=== PATIENT | female | born 1930 | race Caucasian/White ===

== ENCOUNTER 2018-10-09 08:08 | Day surgery (SDC) | payer OTHER ==
[~2018-10-09 08:08] MED LIST: Ativan0.5 MG PO; CALTRATE 600+D1 EAC1 PO; CENTRUM SILVER1 EAC2 PO; COREG PO; Doxazosin Mesyla8 MG PO; Fosinopril Sodi40 MG PO; KRILL OIL500 MG PO; LEVSOD50 PO; Norco 5-325 Ta1 EACH PO; OSTEO BI-FLEX1 EAC2 PO; Potassium Chlo10 ME1 PO; Simvastatin40 MG PO
[2018-10-09] MEDS ORDERED: FURO20 PO (09:33)
[2018-10-09] MEDS ORDERED: ASPI325 PO (09:34)
[2018-10-09] MEDS ORDERED: (None)15 G1 EXT (09:34)
[2018-10-09] MEDS ORDERED: CLOP75 PO (10:23)
== END 2018-10-09 10:45 | disposition home or self-care (01) ==
LOC: MHTC 08:08
DX: I63.9 Cerebral infarction, unspecified (principal); I10 Essential (primary) hypertension; E78.5 Hyperlipidemia, unspecified; E03.9 Hypothyroidism, unspecified; Z79.899 Other long term (current) drug therapy
CPT/HCPCS: 93312; 93325; J7030

== ENCOUNTER 2019-08-16 21:18 | Inpatient (IN) | payer OTHER ==
[~2019-08-16] VITALS: Ht 144.8 cm; Wt 65.9 kg
[~2019-08-16 21:18] MED LIST changes: +(None)15 G1 EXT; +ASPI325 PO; +CLOP75 PO; +FURO20 PO
[2019-08-16 21:59] LABS: BASOPHILS ABSOLUTE AUTO 0.03 K/mm3 (0.00-0.23); BASOPHILS PERCENT AUTO 0 % (0-2); EOSINOPHILS ABSOLUTE AUTO 0.08 K/mm3 (0.00-0.68); EOSINOPHILS PERCENT AUTO 1 % (0-6); Hematocrit 31.2 % (33.0-51.0); Hemoglobin 10.1 g/dL (11.5-16.0); IMMATURE GRAN ABSOLUTE AUTO 0.14 K/mm3 (0.00-0.10); IMMATURE GRAN PERCENT AUTO 1 % (0-1); LYMPHOCYTES ABSOLUTE AUTO 0.57 K/mm3 (0.84-5.20); LYMPHOCYTES PERCENT AUTO 4 % (21-46); MONOCYTES ABSOLUTE AUTO 1.18 K/mm3 (0.16-1.47); MONOCYTES PERCENT AUTO 8 % (4-13); Mean Corpuscular HGB 32.1 pg (26.0-34.0); Mean Corpuscular HGB Conc 32.4 g/dL (31.5-36.5); Mean Corpuscular Volume 99 fL (80-100); Mean Platelet Volume 10.6 fL (9.1-12.4); NEUTROPHILS ABSOLUTE AUTO 12.56 K/mm3 (1.96-9.15); NEUTROPHILS PERCENT AUTO 86 % (41-73); Platelet Count 188 K/mm3 (150-400); RDW Coefficient Variation 13.1 % (11.7-14.2); RDW Standard Deviation 47.9 fL (35.1-46.3); Red Blood Cell Count 3.15 M/mm3 (3.80-5.20); White Blood Cell Count 14.56 K/mm3 (4.00-11.30)
[2019-08-16 22:24] LABS: Albumin, Blood 2.9 g/dL (3.4-5.0); Albumin/Globulin Ratio 0.7 (0.8-1.8); Bilirubin, Total 0.4 mg/dL (0.1-1.0); Bun/Creatinine Ratio 23.4 (12.0-20.0); Calcium, Blood 8.7 mg/dL (8.5-10.1); Creatinine, Blood 2.9 mg/dL (0.40-1.00); Globulin, Blood 4.1 g/dL (2.2-4.0); Potassium, Blood 4.9 mmol/L (3.5-5.5)
[2019-08-16 23:15] LABS: Source, Urine Catheter
[2019-08-16 23:20] LABS: Appearance, Urine Cloudy (Clear); Bilirubin, Urine Neg (Neg); Blood, Urine 3+ (Neg); Color, Urine Yellow (P-Yellow); Glucose Qualitative, Urine Neg (Neg); Ketones, Urine Neg (Neg); Leukocyte Esterase, Urine 3+ (Neg); Nitrite, Urine Neg (Neg); Protein, Urine 3+ (Neg); Specific Gravity, Urine 1.015 (1.003-1.022); Urobilinogen, Urine NORM (Normal)
[2019-08-16 23:32] LABS: U Amphetamine Screen Not Detected; U Barbituate Screen Not Detected; U Benzodiazapine Screen Not Detected; U Buprenorphine Screen Not Detected; U Cannabinoids Screen Not Detected; U Cocaine Screen Not Detected; U Methadone Screen Not Detected; U Methamphetamine Screen Not Detected; U Opiates Screen Not Detected; U Oxycodone Screen Not Detected; U Phencyclidine Screen Not Detected; U Propoxyphene Screen Not Detected
[2019-08-16 23:35] LABS: Bacteria Many /hpf; Red Blood Cells, Urine 0-2 /hpf (0-2); Squamous Epithelial Cells Not Seen /hpf (Few); White Blood Cells, Urine TNTC /hpf (0-5)
--- NOTE | 2019-08-17 03:49 | NUR ---
ASSUMED CARE APPROXIMATELY 0330; PT MED/NO TELE STATUS; PT ALERT & ORIENTED TO SELF; DAUGHTER ESCORTED PT TO ROOM, STATED SHE WOULD BE BACK IN THE AM; PT ON RA W/ O2 SATS >93; LUNG SOUNDS DIM IN BASES; PT PROVIDED MINIMAL ANSWERS FOR ADMIT AND IS POOR HISTORIAN; PT HAS HOME SLIPPERS ON; ATTENDS IN PLACE DUE TO INCONTINENCE; EDUCATED ON USING CALL LIGHT & ORIENTED TO UNIT; PT DENIES NEEDS AT THIS TIME; CALL LIGHT IN REAC; BED IN LOWEST POSITION
--- NOTE | 2019-08-17 06:43 | NUR ---
SHIFT SUMMARY PT SLEPT FOR A COUPLE HOURS ONCE SITUATED; PT FORGETFUL; [place]; NEEDS TIME TO RESPOND; DENIES CHEST PAIN; DENIES SOB; PT ON RA W/ O2 SATS >93; PT INCONTINENT; ATTENDS IN PLACE; DENIES NEEDS; PT REORIENTED TO CALL LIGHT; CALL LIGHT IN PLACE; BED IN LOWEST POSITION; WILL CONTINUE TO MONITOR CLOSELY UNTIL HAND OFF TO DAY SHIFT RN.
--- NOTE | 2019-08-17 06:57 | NUR ---
UPDATE SYNTHROID NOT GIVEN; PHARMACY NOTIFIED OF DOSAGE; NEW SYNTHROID TAB WILL BE SENT
--- NOTE | 2019-08-17 07:26 | NUR ---
ASSUMED CARE: PT RESTING QUIETLY AT THIS TIME. NO ACUTE NEEDS OR DISTRESS NOTED AT THIS TIME.
[2019-08-17 09:05] LABS: Bun/Creatinine Ratio 24.3 (12.0-20.0); Calcium, Blood 8.4 mg/dL (8.5-10.1); Creatinine, Blood 3.01 mg/dL (0.40-1.00); Potassium, Blood 4.7 mmol/L (3.5-5.5)
--- NOTE | 2019-08-17 16:00 | NUR ---
PT TRANSFERRED TO MEDICAL FLOOR WITH NEW IV IN PLACE. REPORT GIVEN TO JEANNE PIEDRA. TADEO AWARE THAT PT WILL NEED ROCEPHIN STARTED UPON TRANSFER. PT'S DAUGHTER AWARE OF TRANSFER TO [facility]. PT TRANSFERRED VIA BED BY HOSPITAL STAFF.
--- NOTE | 2019-08-17 18:21 | NUR ---
SHIFT SUMMARY: PATIENT XFR FROM PCU-05 THIS SHIFT. PT ALERT; ORIENTED TO SELF ONLY; [place]; CALM AND COOPERATIVE WITH CARE. NO C/O PAIN OR NAUSEA SINCE ARRIVAL ON MEDICAL FLOOR. SMALL PO MEDS WHOLE IN WATER; LARGER MEDS CRUSHED IN APPLESAUCE. IV REHYDRATION & IV ABX CONTINUING. WCTM.
--- NOTE | 2019-08-18 03:53 | NUR ---
SHIFT SUMMARY NO ISSUES NOTED THIS SHIFT. PT HAS BEEN SLEEPING T/O SHIFT. PT HAS BEEN REPOSITIONED AND CHANGED NEEDED. PT DAUGHTERS STOPPED BY AND PROVIDED PT BLANKETS FROM HOME. PT CURRENTLY SLEEPING AND BREATHING EASY. CALL LIGHT IN REACH AND BED ALARM ON.
[2019-08-18 05:29] LABS: BASOPHILS ABSOLUTE AUTO 0.02 K/mm3 (0.00-0.23); BASOPHILS PERCENT AUTO 0 % (0-2); EOSINOPHILS ABSOLUTE AUTO 0.05 K/mm3 (0.00-0.68); EOSINOPHILS PERCENT AUTO 1 % (0-6); Hematocrit 30.2 % (33.0-51.0); Hemoglobin 9.4 g/dL (11.5-16.0); IMMATURE GRAN ABSOLUTE AUTO 0.03 K/mm3 (0.00-0.10); IMMATURE GRAN PERCENT AUTO 0 % (0-1); LYMPHOCYTES ABSOLUTE AUTO 0.41 K/mm3 (0.84-5.20); LYMPHOCYTES PERCENT AUTO 4 % (21-46); MONOCYTES ABSOLUTE AUTO 1.08 K/mm3 (0.16-1.47); MONOCYTES PERCENT AUTO 10 % (4-13); Mean Corpuscular HGB 30.5 pg (26.0-34.0); Mean Corpuscular HGB Conc 31.1 g/dL (31.5-36.5); Mean Corpuscular Volume 98 fL (80-100); Mean Platelet Volume 11.6 fL (9.1-12.4); NEUTROPHILS ABSOLUTE AUTO 8.95 K/mm3 (1.96-9.15); NEUTROPHILS PERCENT AUTO 85 % (41-73); Platelet Count 155 K/mm3 (150-400); RDW Coefficient Variation 13.2 % (11.7-14.2); RDW Standard Deviation 47.3 fL (35.1-46.3); Red Blood Cell Count 3.08 M/mm3 (3.80-5.20); White Blood Cell Count 10.54 K/mm3 (4.00-11.30)
[2019-08-18 05:59] LABS: Bun/Creatinine Ratio 26.4 (12.0-20.0); Calcium, Blood 8.5 mg/dL (8.5-10.1); Creatinine, Blood 2.92 mg/dL (0.40-1.00)
--- NOTE | 2019-08-18 10:26 | NUR ---
PATIENT WAS UP IN CHAIR FOR BREAKFAST AND REMAINED IN CHAIR UNTIL 1020
--- NOTE | 2019-08-18 18:09 | NUR ---
SHIFT SUMMARY PATIENT A/O X 2. MAKES NEEDS KNOWN. CALL LIGHT IN REACH. NO SOB, PAIN REPORTED. IV ABX INFUSED WITHOUT ASE OBSERVED. VSS. PATIENT UP IN CHAIR FOR MEAL AT BREAKFAST. REFUSED TO GET OUT OF BED FOR LUNCH AND DINNER. SKIN CDI AND PATIENT TURNED Q 2 HOURS.
[2019-08-19 05:15] LABS: BASOPHILS ABSOLUTE AUTO 0.04 K/mm3 (0.00-0.23); BASOPHILS PERCENT AUTO 0 % (0-2); EOSINOPHILS ABSOLUTE AUTO 0.55 K/mm3 (0.00-0.68); EOSINOPHILS PERCENT AUTO 6 % (0-6); Hematocrit 28.6 % (33.0-51.0); Hemoglobin 9.1 g/dL (11.5-16.0); IMMATURE GRAN ABSOLUTE AUTO 0.05 K/mm3 (0.00-0.10); IMMATURE GRAN PERCENT AUTO 1 % (0-1); LYMPHOCYTES ABSOLUTE AUTO 0.53 K/mm3 (0.84-5.20); LYMPHOCYTES PERCENT AUTO 6 % (21-46); MONOCYTES ABSOLUTE AUTO 1.19 K/mm3 (0.16-1.47); MONOCYTES PERCENT AUTO 13 % (4-13); Mean Corpuscular HGB 31.1 pg (26.0-34.0); Mean Corpuscular HGB Conc 31.8 g/dL (31.5-36.5); Mean Corpuscular Volume 98 fL (80-100); Mean Platelet Volume 11.5 fL (9.1-12.4); NEUTROPHILS ABSOLUTE AUTO 6.62 K/mm3 (1.96-9.15); NEUTROPHILS PERCENT AUTO 74 % (41-73); Platelet Count 154 K/mm3 (150-400); RDW Coefficient Variation 13.3 % (11.7-14.2); RDW Standard Deviation 47.8 fL (35.1-46.3); Red Blood Cell Count 2.93 M/mm3 (3.80-5.20); White Blood Cell Count 8.98 K/mm3 (4.00-11.30)
[2019-08-19 05:33] LABS: Bun/Creatinine Ratio 29.9 (12.0-20.0); Calcium, Blood 8.5 mg/dL (8.5-10.1); Creatinine, Blood 2.81 mg/dL (0.40-1.00); Potassium, Blood 4.8 mmol/L (3.5-5.5)
--- NOTE | 2019-08-19 05:35 | NUR ---
SHIFT SUMMARY PT IS AN 89 Y/O FEMALE, ADMITTED FOR UTI. SHE IS A&O X 1, CURRENTLY ON BEDREST, TURN Q2H AND INCONTINENT. VITAL SIGNS STABLE. PT DENIED ANY COMPLAINTS OF ACUTE PAIN, NAUSEA OR SOB AND SLEPT WELL DURING THE NIGHT. NO ACUTE CHANGES IN PT CONDITION NOTED DURING THE NIGHT. WILL CONTINUE TO MONITOR AND TREAT PER EMAR UNTIL HAND OFF TO DAY SHIFT RN.
--- NOTE | 2019-08-19 15:52 | NUR ---
SHIFT SUMMARY PT IS A/O TO HERSELF,FAMILY AND SITUATION AT TIMES. SHE HAS NO C/O PAIN. PT HAS BEEN CONT AND INC THROUGHOUT THE DAY. IV FLUIDS INFUSED ORDERED. PT HAS A GOOD APPETITE. FAMILY HAS BEEN AT THE BEDSIDE MOST OF THE DAY. SHE IS ABLE TO MAKE HER NEEDS KNOWN WHILE IN THE ROOM BUT DOESNT ALWAYS CALL FOR HELP. BED ALARM IS SET FOR SAFETY.
[2019-08-20 04:56] LABS: BASOPHILS ABSOLUTE AUTO 0.04 K/mm3 (0.00-0.23); BASOPHILS PERCENT AUTO 0 % (0-2); EOSINOPHILS ABSOLUTE AUTO 0.57 K/mm3 (0.00-0.68); EOSINOPHILS PERCENT AUTO 6 % (0-6); Hematocrit 28.8 % (33.0-51.0); Hemoglobin 9.2 g/dL (11.5-16.0); IMMATURE GRAN ABSOLUTE AUTO 0.05 K/mm3 (0.00-0.10); IMMATURE GRAN PERCENT AUTO 1 % (0-1); LYMPHOCYTES PERCENT AUTO 6 % (21-46); MONOCYTES ABSOLUTE AUTO 1.48 K/mm3 (0.16-1.47); MONOCYTES PERCENT AUTO 15 % (4-13); Mean Corpuscular HGB 31.2 pg (26.0-34.0); Mean Corpuscular HGB Conc 31.9 g/dL (31.5-36.5); Mean Corpuscular Volume 98 fL (80-100); Mean Platelet Volume 11.5 fL (9.1-12.4); NEUTROPHILS ABSOLUTE AUTO 7.33 K/mm3 (1.96-9.15); NEUTROPHILS PERCENT AUTO 73 % (41-73); Platelet Count 162 K/mm3 (150-400); RDW Coefficient Variation 13.2 % (11.7-14.2); RDW Standard Deviation 47.3 fL (35.1-46.3); Red Blood Cell Count 2.95 M/mm3 (3.80-5.20); White Blood Cell Count 10.07 K/mm3 (4.00-11.30)
[2019-08-20 05:14] LABS: Bun/Creatinine Ratio 31.8 (12.0-20.0); Calcium, Blood 7.9 mg/dL (8.5-10.1); Creatinine, Blood 2.33 mg/dL (0.40-1.00); Potassium, Blood 4.2 mmol/L (3.5-5.5)
--- NOTE | 2019-08-20 05:46 | NUR ---
SHIFT SUMMARY PT IS AN 89 Y/O FEMALE, ADMITTED FOR A UTI. SHE IS A&O X SELF AND FAMILY, INCONTINENT AND TURN Q2H. NO COMPLAINTS OF PAIN, NAUSEA OR SOB. VITAL SIGNS STABLE. PT RECEIVED NS @ 125/HR THROUGH THE NIGHT. NO ACUTE CHANGES IN PT CONDITION NOTED. WILL CONTINUE TO MONITOR AND TREAT PER EMAR UNTIL HAND OFF TO DAY SHIFT RN.
[2019-08-20] MEDS ORDERED: ACET325 PO (12:17)
[2019-08-20] MEDS ORDERED: ASPI325 PO (12:18)
[2019-08-20] MEDS ORDERED: Culturelle1 CAP PO (12:19)
[2019-08-20] MEDS ORDERED: DULCOLAX5 MG PO (12:19)
[2019-08-20] MEDS ORDERED: ONDA4 PO (12:20)
[2019-08-20] MEDS ORDERED: SENN187 PO (12:20)
[2019-08-20] MEDS ORDERED: CEFP200 PO (12:22)
--- NOTE | 2019-08-20 13:37 | NUR ---
PT DCD HOME WITH DAUGHTER. DAUGHTER SCHEDULED FOLLOW UP [place]UM[place] WITH PCP. ALL RX AND INSTRUCTIONS REVIEWED WITH PT AND HER DAUGHTER AND ALL QUESTIONS ANSWERED. IV REMOVED WITH NO ISSUE. RX FAXED TO [facility] IN [place] PER PT REQUEST. ALL PERSONAL BELONGINGS SENT WITH PT. PT STABLE UPON DC AND WAS ASSISTED TO HER PERSONAL CAR.
== END 2019-08-20 13:19 | disposition home or self-care (01) | DRG 689 ==
LOC: ER 21:18 → MEDS 21:19 → PCU 08-17 04:23 → MEDS 08-17 15:40
PROVIDERS: Emergency Medicine; Family Medicine; Hospitalist; ADMIT Internal Medicine
DX: N39.0 Urinary tract infection, site not specified (principal); G93.41 Metabolic encephalopathy; N17.9 Acute kidney failure, unspecified; E03.9 Hypothyroidism, unspecified; Z79.82 Long term (current) use of aspirin; Z92.21 Personal history of antineoplastic chemotherapy; Z85.3 Personal history of malignant neoplasm of breast; B96.20 Unspecified Escherichia coli [E. coli] as the cause of diseases classified elsewhere; M19.90 Unspecified osteoarthritis, unspecified site; I12.9 Hypertensive chronic kidney disease with stage 1 through stage 4 chronic kidney disease, or unspecified chronic kidney disease; N18.3 Chronic kidney disease, stage 3 (moderate); E11.22 Type 2 diabetes mellitus with diabetic chronic kidney disease
CPT/HCPCS: 36415; 71046; 80048; 80053; 81001; 85025; 87077; 87086; 87186; 93005; 93010; 96365; 96366; 97110; 97116; 97161; 97530; 99285-25; G0378; J0696; J1650; J1940; J7030